=== PATIENT | female | born 1970 | race Caucasian/White ===

== ENCOUNTER 2016-11-26 02:01 | Emergency (ER) | payer BC ==
[~2016-11-26] VITALS: Ht 157.5 cm; Wt 63.2 kg
[2016-11-26 02:08] VITALS: BP 167/105; PULSE 81; RESP 16; TEMP 98.7; O2SAT 100
[2016-11-26] MEDS ORDERED: SODIUM CHLOR 0.9% 1000 ML INJ 1,000 ML IV SCH (02:36)
[2016-11-26] MEDS ORDERED: ONDANSETRON HCL 4 MG/2 ML VIAL IVP ONE (02:45)
[2016-11-26] MEDS ORDERED: SODIUM CHLORIDE 0.9% FLUSH 10 ML FLUSH IV FLUSH PRN (02:45)
[2016-11-26] MEDS ORDERED: HYDROmorphone HCL PF 2 MG/ML VIAL IVS ONE (02:45)
[2016-11-26 03:17] LABS: AUTOMATED NEUTROPHIL # 4.3 TH/MM3 (1.8-7.7); BASOPHIL # 0.1 TH/MM3 (0-0.2); BASOPHIL % 1.1 % (0.0-2.0); EOSINOPHIL # 0.3 TH/MM3 (0-0.4); EOSINOPHIL % 3.6 % (0.0-4.0); HEMATOCRIT 36.2 % (35.0-46.0); HEMO FLAGS DIFF FINAL; LYMPHOCYTE # 2.4 TH/MM3 (1.0-4.8); MEAN CELL VOLUME 83.4 FL (80.0-100.0); MEAN CORPUSCULAR HEMOGLOBIN 27.5 PG (27.0-34.0); MEAN CORPUSCULAR HGB CONC 32.9 % (32.0-36.0); MONO % 7.2 % (0.0-8.0); NEUT % 57.1 % (16.0-70.0); PLATELET COUNT 265 TH/MM3 (150-450); RED BLOOD COUNT 4.34 MIL/MM3 (4.00-5.30); RED CELL DISTRIBUTION WIDTH 12.2 % (11.6-17.2); WHITE BLOOD COUNT 7.7 TH/MM3 (4.0-11.0)
[2016-11-26 03:21] LABS: BLOOD, URINE NEG (NEG); GLUCOSE,URINE NEG (NEG); KETONE, URINE NEG (NEG); NITRITE,URINE NEG (NEG)
[2016-11-26 03:29] LABS: CHLORIDE 106 MEQ/L (98-107); POTASSIUM 3.2 MEQ/L (3.5-5.1); SODIUM (NA) 142 MEQ/L (136-145)
--- NOTE | 2016-11-26 03:29 | PD ---
HPI Chief Complaint: Flank/Kidney Pain Time Seen by Provider: 02:29 Travel History International Travel<30 days: No Contact w/Intl Traveler<30days: No Traveled to known affect area: No History of Present Illness HPI The patient is a 46-year-old female that complains of pain primarily on the right flank beginning Thursday. The pain got much worse midnight tonight. She denies any nausea or vomiting or fever. She does not have a history of kidney stones. She denies any melanotic or bloody stools. She does have frequency of urination but denies any dysuria. She still has her gallbladder but has had an appendectomy. She states there is no possibility of . [facility], [facility] Past Medical History Diminished Hearing: No Hypertension: Yes Tetanus Vaccination: Unknown Influenza Vaccination: No ?: Not Dilation and Curettage (D&C): Yes (uterine fibroid removal) Past Surgical History Appendectomy: Yes Section: Yes Social History Alcohol Use: No Tobacco Use: No Substance Use: No Allergies-Medications (Allergen,Severity, Reaction): Coded Allergies: Acetaminophen (Verified Allergy, Severe, 11/26/16) Apple (Verified Allergy, Severe, 11/26/16) Carrot (Verified Allergy, Severe, 11/26/16) Peanut (Verified Allergy, Severe, 11/26/16) Review of Systems Except as stated in HPI: all other systems reviewed are Neg Physical Exam Narrative GENERAL: The patient is alert, oriented 3 and moderate apparent distress with her right flank pain. Her vital signs show blood pressure 167/105 but are otherwise normal. SKIN: Focused skin assessment warm/dry. HEAD: Atraumatic. Normocephalic. EYES: Pupils equal and round. No scleral icterus. No injection or drainage. ENT: No nasal bleeding or discharge. Mucous membranes pink and moist. NECK: Trachea midline. No JVD. CARDIOVASCULAR: Regular rate and rhythm. No murmur appreciated. RESPIRATORY: No accessory muscle use. Clear to auscultation. Breath sounds equal bilaterally. GASTROINTESTINAL: Abdomen soft, with tenderness to direct palpation over the right flank, nondistended. Hepatic and splenic margins not palpable. No guarding or rebound is present. MUSCULOSKELETAL: No obvious deformities. No clubbing. No cyanosis. No edema. NEUROLOGICAL: Awake and alert. No obvious cranial nerve deficits. Motor grossly within normal limits. Normal speech. PSYCHIATRIC: Appropriate mood and affect; insight and judgment normal. Data Data Last Documented VS Vital Signs Date Time Temp Pulse Resp B/P Pulse Ox O2 Delivery O2 Flow Rate FiO2 11/26/16 03:57 18 11/26/16 03:50 84 204/99 95 Room Air 11/26/16 02:08 98.7 Orders Complete Blood Count With Diff (11/26/16 02:36) Comprehensive Metabolic Panel (11/26/16 02:36) Lipase (11/26/16 02:36) Urinalysis - C+S If Indicated (11/26/16 02:36) Ct Abd/Pel W Iv Contrast(Rout) (11/26/16 02:36) Iv Access Insert/Monitor (11/26/16 02:36) Ecg Monitoring (11/26/16 02:36) Oximetry (11/26/16 02:36) Hydromorphone Pf Inj (Dilaudid Pf Inj) (11/26/16 02:45) Ondansetron Inj (Zofran Inj) (11/26/16 02:45) Sodium Chlor 0.9% 1000 Ml Inj (Ns 1000 M (11/26/16 02:36) Sodium Chloride 0.9% Flush (Ns Flush) (11/26/16 02:45) Potassium Chloride (Kcl) (11/26/16 03:45) Iohexol 350 Inj (Omnipaque 350 Inj) (11/26/16 03:36) Labs Laboratory Tests Test 11/26/16 11/26/16 03:00 03:09 White Blood Count 7.7 TH/MM3 Red Blood Count 4.34 MIL/MM3 Hemoglobin 11.9 GM/DL Hematocrit 36.2 % Mean Corpuscular Volume 83.4 FL Mean Corpuscular Hemoglobin 27.5 PG Mean Corpuscular Hemoglobin 32.9 % Concent Red Cell Distribution Width 12.2 % Platelet Count 265 TH/MM3 Mean Platelet Volume 7.5 FL Neutrophils (%) (Auto) 57.1 % Lymphocytes (%) (Auto) 31.0 % Monocytes (%) (Auto) 7.2 % Eosinophils (%) (Auto) 3.6 % Basophils (%) (Auto) 1.1 % Neutrophils # (Auto) 4.3 TH/MM3 Lymphocytes # (Auto) 2.4 TH/MM3 Monocytes # (Auto) 0.6 TH/MM3 Eosinophils # (Auto) 0.3 TH/MM3 Basophils # (Auto) 0.1 TH/MM3 CBC Comment DIFF FINAL Differential Comment Sodium Level 142 MEQ/L Potassium Level 3.2 MEQ/L Chloride Level 106 MEQ/L Carbon Dioxide Level 27.9 MEQ/L Anion Gap 8 MEQ/L Blood Urea Nitrogen 9 MG/DL Creatinine 0.82 MG/DL Estimat Glomerular Filtration 74 ML/MIN Rate Random Glucose 96 MG/DL Calcium Level 8.6 MG/DL Total Bilirubin 0.4 MG/DL Aspartate Amino Transf 16 U/L (AST/SGOT) Alanine Aminotransferase 29 U/L (ALT/SGPT) Alkaline Phosphatase 84 U/L Total Protein 7.8 GM/DL Albumin 3.3 GM/DL Lipase 191 U/L Urine Color STRAW Urine Turbidity CLEAR Urine pH 7.0 Urine Specific [place] 1.008 Urine Protein NEG mg/dL Urine Glucose (UA) NEG mg/dL Urine Ketones NEG mg/dL Urine Occult Blood NEG Urine Nitrite NEG Urine Bilirubin NEG Urine Leukocyte Esterase TRACE Urine WBC 3-5 /hpf Urine Squamous Epithelial 0-5 /hpf Cells Urine Amorphous Sediment SMALL Urine Hyaline Casts 0-2 /lpf Microscopic Urinalysis Comment CULT NOT INDICATED MDM Medical Decision Making Medical Screen Exam Complete: Yes Emergency Medical Condition: Yes Medical Record Reviewed: Yes Interpretation(s) The urine shows trace leukocyte esterase and is otherwise normal and culture is not indicated. The CBC is normal. But is otherwise normal. The lipase is normal. Differential Diagnosis Urinary stone, PID, urinary tract infection, electrolyte disorder, cholecystitis Narrative Course The patient is now feeling much better and the abdomen is soft and nontender. I cannot find any evidence in the urine, blood work or CT scan for the cause of her pain. Impression: Abdominal pain unknown etiology Plan: The patient will be given Motrin 600 mg 3 times daily. Diagnosis Primary Impression: Abdominal pain of unknown etiology Additional Instructions: Take the Motrin, 1 tablet 3 times daily for pain. Follow-up with her primary care physician. You are given the lab work, urine results and CT scan results to take your primary care physician. Follow-up with him within a week. Med/Other Pt SpecificInfo: Prescription(s) given Scripts Ibuprofen 600 Mg [id number] Mg PO TID #44 TAB Ref 0 Prov:Gonzalo Almanza MD 11/26/16 Disposition: 01 DISCHARGE HOME Condition: Stable Gonzalo Almanza MD Nov 26, 2016 03:29
[2016-11-26 03:33] LABS: ANION GAP 8 MEQ/L (5-15); BICARBONATE 27.9 MEQ/L (21.0-32.0); BLOOD UREA NITROGEN 9 MG/DL (7-18)
[2016-11-26 03:36] LABS: ALT (GPT) 29 U/L (10-53); AST (GOT) 16 U/L (15-37); GLOMERULAR FILTRATION RATE 74 ML/MIN (>89)
[2016-11-26] MEDS ORDERED: IOHEXOL 350 MG/ML 10 ML VIAL (for RAD DIAG) IV ONE (03:36)
[2016-11-26 03:38] LABS: TOTAL BILIRUBIN ADULT 0.4 MG/DL (0.2-1.0)
[2016-11-26 03:39] LABS: ALKALINE PHOSPHATASE 84 U/L (45-117)
[2016-11-26 03:42] LABS: URINE COLOR STRAW (YELLW/STRAW)
[2016-11-26 03:44] LABS: HYALINE CAST, URINE 0-2 /lpf (RARE); SQUAMOUS EPITHELIAL CELL URINE 0-5 /hpf (0-5)
[2016-11-26] MEDS ORDERED: POTASSIUM CHLORIDE 20 MEQ CONTROLLED RELEASE TAB PO ONE (03:45)
[2016-11-26 03:46] LABS: COMMENT (UR) CULT NOT INDICATED; CULTURE IF INDICATED CULT NOT INDICATED
[2016-11-26 03:50] VITALS: BP 204/99; PULSE 84; RESP 18; O2SAT 95
[2016-11-26 03:57] VITALS: RESP 18
--- NOTE | 2016-11-26 04:08 | RADHPO ---
EXAM DATE/TIME: 11/26/2016 03:13 [facility] COMPARISON: No previous studies available for comparison. INDICATIONS : Right flank and back pain. IV CONTRAST: 100 cc Omnipaque 350 (iohexol) IV ORAL CONTRAST: No oral contrast ingested. RADIATION DOSE: 8.45 CTDIvol (mGy) MEDICAL HISTORY : Hypertension. SURGICAL HISTORY : Appendectomy. section. ENCOUNTER: Initial ACUITY: 1 day PAIN SCALE: 10/10 LOCATION: Right flank TECHNIQUE: Volumetric scanning of the abdomen and pelvis was performed. Using automated exposure control and ad justment of the mA and/or kV according to patient size, radiation dose was kept as low as reasonably achievable to obtain optimal diagnostic quality images. FINDINGS: LOWER LUNGS: The visualized lower lungs are clear. LIVER: Homogeneous density without lesion. There is no dilation of the biliary tree. No calcified gallston es. SPLEEN: Normal size without lesion. PANCREAS: Within normal limits. KIDNEYS: Normal in size and shape. There is no mass, stone or hydronephrosis. ADRENAL GLANDS: Within normal limits. VASCULAR: There is no aortic aneurysm. BOWEL/MESENTERY: The stomach, small bowel, and colon demonstrate no acute abnormality. There is no free intraperitone al air or fluid. ABDOMINAL WALL: Within normal limits. RETROPERITONEUM: There is no lymphadenopathy. BLADDER: No wall thickening or mass. REPRODUCTIVE: Within normal limits. INGUINAL: There is no lymphadenopathy or hernia. MUSCULOSKELETAL: Within normal limits for patient age. CONCLUSION: 1. No acute inflammatory process. 2. No hydronephrosis. Cm Moody MD on November 26, 2016 at 4:05 Board Certified Radiologist. This report was verified electronically.
[2016-11-26] MEDS ORDERED: IBUP-232 PO (04:36)
== END 2016-11-26 05:03 | disposition home or self-care (01) ==
LOC: PHED 02:01
DX: R10.9 Unspecified abdominal pain (principal); R35.0 Frequency of micturition; I10 Essential (primary) hypertension
CPT/HCPCS: 74177; 80053; 81001; 83690; 85025; 96374; 96375; 99284; J1170; J2405; J7030; Q9967

== ENCOUNTER 2017-01-07 22:34 | Emergency (ER) | payer BC ==
[~2017-01-07] VITALS: Ht 157.5 cm; Wt 60.0 kg
[~2017-01-07 22:34] MED LIST: IBUP-232 PO
[2017-01-07 23:16] VITALS: BP 156/102; PULSE 90; RESP 16; TEMP 100.6; O2SAT 99
[2017-01-07 23:38] VITALS: BP 185/108; PULSE 89; O2SAT 98
--- NOTE | 2017-01-07 23:58 | PD ---
HPI Chief Complaint: Cold / Flu Symptoms Time Seen by Provider: 23:47 Travel History International Travel<30 days: No Contact w/Intl Traveler<30days: No Traveled to known affect area: No History of Present Illness HPI The patient is a 46-year-old female that complains of a cough productive of white and yellow sputum for the last 3 days. She did have myalgias but not at this time. She is nauseated without vomiting. She denies any fever. She does not smoke. She denies any diarrhea, dysuria, frequency or urgency. PFS Past Medical History High Cholesterol: Yes Diminished Hearing: No Hypertension: Yes Pneumonia: Yes Tetanus Vaccination: < 5 Years Influenza Vaccination: No ?: Not LMP: "STOPPED MID 30'S" : 3 Para: 1 Miscarriage: 1 : 1 Dilation and Curettage (D&C): Yes (uterine fibroid removal) Past Surgical History Appendectomy: Yes Section: Yes Gynecologic Surgery: Yes (LAPAROSCOPY "FOR UTERINE FIBROID") Social History Alcohol Use: Yes ("RARELY") Tobacco Use: No Substance Use: No Allergies-Medications (Allergen,Severity, Reaction): Coded Allergies: Acetaminophen (Verified Allergy, Severe, 01/07/17) Apple (Verified Allergy, Severe, 01/07/17) Carrot (Verified Allergy, Severe, 01/07/17) Peanut (Verified Allergy, Severe, 01/07/17) Reported Meds & Prescriptions Reported Meds & Active Scripts Active Review of Systems Except as stated in HPI: all other systems reviewed are Neg Physical Exam Narrative GENERAL: The patient is alert, oriented 3 in no respiratory distress. Her vital signs show temperature 100.6 with blood pressure 156/102 but otherwise normal. Oximetry is 99% on room air. SKIN: Focused skin assessment warm/dry. HEAD: Atraumatic. Normocephalic. EYES: Pupils equal and round. No scleral icterus. No injection or drainage. ENT: No nasal bleeding or discharge. Mucous membranes pink and moist. NECK: Trachea midline. No JVD. CARDIOVASCULAR: Regular rate and rhythm. No murmur appreciated. RESPIRATORY: No accessory muscle use. Clear to auscultation. Breath sounds equal bilaterally. GASTROINTESTINAL: Abdomen soft, non-tender, nondistended. Hepatic and splenic margins not palpable. No guarding or rebound is present. MUSCULOSKELETAL: No obvious deformities. No clubbing. No cyanosis. No edema. NEUROLOGICAL: Awake and alert. No obvious cranial nerve deficits. Motor grossly within normal limits. Normal speech. PSYCHIATRIC: Appropriate mood and affect; insight and judgment normal. Data Data Last Documented VS Vital Signs Date Time Temp Pulse Resp B/P Pulse Ox O2 Delivery O2 Flow Rate FiO2 01/08/17 01:10 100 180/100 Room Air 01/08/17 00:15 100 01/07/17 23:16 100.6 16 Orders Complete Blood Count With Diff (01/07/17 23:47) Basic Metabolic Panel (Bmp) (01/07/17 23:47) Urinalysis - C+S If Indicated (01/07/17 23:47) Influenzae A/B Antigen (01/07/17 23:47) Chest, Pa & Lat (01/07/17 23:47) Ed Urine Pregnancytest Poc (01/07/17 23:50) Ketorolac Inj (Toradol Inj) (01/08/17 00:45) Potassium Chloride (Kcl) (01/08/17 01:15) Hydralazine Inj (Apresoline Inj) (01/08/17 01:30) Hepatic Functional Panel (01/08/17 00:05) Labs Laboratory Tests Test 01/08/17 00:05 White Blood Count 5.8 TH/MM3 Red Blood Count 4.50 MIL/MM3 Hemoglobin 12.5 GM/DL Hematocrit 37.4 % Mean Corpuscular Volume 83.2 FL Mean Corpuscular Hemoglobin 27.8 PG Mean Corpuscular Hemoglobin 33.4 % Concent Red Cell Distribution Width 12.2 % Platelet Count 267 TH/MM3 Mean Platelet Volume 7.4 FL Neutrophils (%) (Auto) 66.0 % Lymphocytes (%) (Auto) 20.9 % Monocytes (%) (Auto) 11.6 % Eosinophils (%) (Auto) 1.1 % Basophils (%) (Auto) 0.4 % Neutrophils # (Auto) 3.8 TH/MM3 Lymphocytes # (Auto) 1.2 TH/MM3 Monocytes # (Auto) 0.7 TH/MM3 Eosinophils # (Auto) 0.1 TH/MM3 Basophils # (Auto) 0.0 TH/MM3 CBC Comment DIFF FINAL Differential Comment Urine Color YELLOW Urine Turbidity CLEAR Urine pH 6.5 Urine Specific [place] 1.012 Urine Protein TRACE mg/dL Urine Glucose (UA) NEG mg/dL Urine Ketones NEG mg/dL Urine Occult Blood NEG Urine Nitrite NEG Urine Bilirubin NEG Urine Leukocyte Esterase NEG Urine RBC 0-2 /hpf Urine WBC 0-2 /hpf Urine Squamous Epithelial 6-8 /hpf Cells Urine Bacteria NONE /hpf Microscopic Urinalysis Comment CULT NOT INDICATED Sodium Level 138 MEQ/L Potassium Level 3.1 MEQ/L Chloride Level 98 MEQ/L Carbon Dioxide Level 30.8 MEQ/L Anion Gap 9 MEQ/L Blood Urea Nitrogen 6 MG/DL Creatinine 0.89 MG/DL Estimat Glomerular Filtration 68 ML/MIN Rate Random Glucose 119 MG/DL Calcium Level 9.0 MG/DL Total Bilirubin 0.4 MG/DL Direct Bilirubin 0.1 MG/DL Indirect Bilirubin 0.3 MG/DL Aspartate Amino Transf 28 U/L (AST/SGOT) Alanine Aminotransferase 46 U/L (ALT/SGPT) Alkaline Phosphatase 72 U/L Total Protein 8.2 GM/DL Albumin 3.5 GM/DL [facility] Medical Decision Making Medical Screen Exam Complete: Yes Emergency Medical Condition: Yes Medical Record Reviewed: Yes Interpretation(s) The complete metabolic profile shows potassium 3.1 and GFR of 68 but is otherwise normal. The chest x-ray is normal. The CBC is normal and the white count is 5800. The urine is normal and culture is not indicated. The influenza A/B antigen is negative for flu a and flu B. Differential Diagnosis Pneumonia, nonspecific viral syndrome, flu syndrome, electrolyte disorder, dehydration Narrative Course At 1:45 in the morning I walked in on the patient and she was sleeping. After waking her up she said she needed something for the headache. She does get nauseated and she will be getting Phenergan for nausea and tramadol for the headache. Impression: Viral syndrome Plan: The patient is given tramadol and Phenergan. Diagnosis Primary Impression: Viral syndrome Med/Other Pt SpecificInfo: Prescription(s) given Scripts Prochlorperazine Maleate 10 Mg Tab10 Mg PO Q6H PRN (NAUSEA OR VOMITING) #30 TAB Ref 0 Prov:Gonzalo Almanza MD 01/08/17 Tramadol 50 Mg Tab50 Mg PO Q4H PRN (PAIN) #30 TAB Ref 0 Prov:Gonzalo Almanza MD 01/08/17 Disposition: DISCHARGE HOME Condition: Stable Gonzalo Almanza MD January 07, 2017 23:58
[2017-01-08 00:15] VITALS: BP 179/103; PULSE 86; O2SAT 100
--- NOTE | 2017-01-08 00:27 | RADHPO ---
EXAM DATE/TIME: 01/08/2017 00:18 [facility] COMPARISON: No previous studies available for comparison. INDICATIONS : Cough, shortness of breath for 3 days MEDICAL HISTORY : None. SURGICAL HISTORY : None. ENCOUNTER: Initial ACUITY: 3 days PAIN SCORE: 0/10 LOCATION: Bilateral chest FINDINGS: PA and lateral views of the chest demonstrate the lungs to be symmetrically aerated without evidence of mass, infiltrate or effusion. The cardiomediastinal contours are unremarkable. Osseous structure s are intact. CONCLUSION: Normal examination. Oswaldo Mack MD on January 08, 2017 at 0:25 Board Certified Radiologist. This report was verified electronically.
[2017-01-08 00:29] LABS: BLOOD, URINE NEG (NEG); GLUCOSE,URINE NEG (NEG); KETONE, URINE NEG (NEG); NITRITE,URINE NEG (NEG); PH, URINE 6.5 (5.0-8.5)
[2017-01-08 00:32] LABS: AUTOMATED NEUTROPHIL # 3.8 TH/MM3 (1.8-7.7); BASOPHIL % 0.4 % (0.0-2.0); EOSINOPHIL # 0.1 TH/MM3 (0-0.4); EOSINOPHIL % 1.1 % (0.0-4.0); HEMATOCRIT 37.4 % (35.0-46.0); HEMO FLAGS DIFF FINAL; LYMPH % 20.9 % (9.0-44.0); LYMPHOCYTE # 1.2 TH/MM3 (1.0-4.8); MEAN CELL VOLUME 83.2 FL (80.0-100.0); MEAN CORPUSCULAR HEMOGLOBIN 27.8 PG (27.0-34.0); MEAN CORPUSCULAR HGB CONC 33.4 % (32.0-36.0); MONO % 11.6 % (0.0-8.0); PLATELET COUNT 267 TH/MM3 (150-450); RED CELL DISTRIBUTION WIDTH 12.2 % (11.6-17.2); WHITE BLOOD COUNT 5.8 TH/MM3 (4.0-11.0)
[2017-01-08 00:35] LABS: URINE COLOR YELLOW (YELLW/STRAW)
[2017-01-08 00:36] LABS: POTASSIUM 3.1 MEQ/L (3.5-5.1); RBC, URINE 0-2 /hpf (0-3); WBC, URINE 0-2 /hpf (0-5)
[2017-01-08 00:37] LABS: COMMENT (UR) CULT NOT INDICATED; CULTURE IF INDICATED CULT NOT INDICATED
[2017-01-08 00:39] LABS: BICARBONATE 30.8 MEQ/L (21.0-32.0)
[2017-01-08] MEDS ORDERED: KETOROLAC TROMETHAMINE 60 MG/2 ML (IM) VIAL IVP ONE (00:45)
[2017-01-08 01:10] VITALS: BP 180/100; PULSE 100
[2017-01-08] MEDS ORDERED: POTASSIUM CHLORIDE 20 MEQ CONTROLLED RELEASE TAB PO ONE (01:15)
[2017-01-08] MEDS ORDERED: hydrALAZINE HCL 20 MG/ML VIAL IV PUSH ONE (01:30)
[2017-01-08 01:35] LABS: INDIRECT BILIRUBIN 0.3 MG/DL (0.0-0.8); TOTAL BILIRUBIN ADULT 0.4 MG/DL (0.2-1.0)
[2017-01-08] MEDS ORDERED: PROC10TA PO (01:52)
[2017-01-08] MEDS ORDERED: TRAM50TA PO (01:52)
[2017-01-08 02:00] VITALS: BP 149/80; PULSE 92; RESP 16; O2SAT 99
[2017-01-08] MEDS ORDERED: traMADol HCL 50 MG TAB PO ONE (02:00)
[2017-01-08 02:24] VITALS: BP 131/78; PULSE 81; RESP 20; O2SAT 99
[2017-01-08] MEDS ORDERED: ONDANSETRON HCL 4 MG/2 ML VIAL IV ONE (03:15)
[2017-01-08 03:35] VITALS: BP 107/60; PULSE 75; RESP 16; TEMP 99; O2SAT 98
[2017-01-08 04:58] VITALS: BP 113/72; PULSE 68; RESP 16; O2SAT 98
== END 2017-01-08 05:35 | disposition home or self-care (01) ==
LOC: PHED 22:34
DX: B34.9 Viral infection, unspecified (principal); I10 Essential (primary) hypertension
CPT/HCPCS: 71020; 80048; 80076; 81001; 84703; 85025; 87804; 96374; 96375; 99284; J0360; J1885; J2405